=== PATIENT | male | born 1950 | race African-American/Black ===

== ENCOUNTER 2022-12-18 22:27 | Inpatient (IN) | payer MEDICARE, MEDICAID ==
[~2022-12-18] VITALS: Ht 175.3 cm; Wt 81.6 kg
[2022-12-18] MEDS ORDERED: DEXT 10% WATER 250 ML IV SCH (23:00)
[2022-12-19 01:12] LABS: BASOPHILS % 0.5 % (0.0-2.0); EOSINOPHILS % 0.4 % (0.0-5.0); HEMOGLOBIN. 9.9 g/dL (14.0-18.0); MEAN CORPUSCULAR HEMOGLOBIN 29.3 pg (28.0-32.0); MEAN CORPUSCULAR HGB CONC 32.9 g/dL (31.0-37.0); MEAN CORPUSCULAR VOLUME 88.9 fL (80.0-94.0); NEUTROPHILS % 81.1 % (40.0-76.0); PLATELET 423 x1000/uL (130-400); RED BLOOD CELL COUNT 3.37 mill/uL (4.7-6.1); RED CELL DISTRIBUTION WIDTH 13.6 % (11.6-14.6); WHITE BLOOD COUNT 11.4 x1000/uL (4.5-11.0)
[2022-12-19 01:17] LABS: CHLORIDE 106 mEq/L (98-107); INDEX HEMOLYSI 1 (1-3); INDEX ICTERIC 1 (1-4); INDEX LIPEMIC 1 (1-3); POTASSIUM 4.6 mEq/L (3.5-5.1); SODIUM 133 mEq/L (136-145)
[2022-12-19 01:26] LABS: ALANINE AMINOTRANSFERASE 51 IU/L (13-61); ASPARTATE AMINOTRANSFERASE 71 IU/L (15-37); BILIRUBIN TOTAL 0.3 mg/dL (0.1-1.0); CALCIUM 8.3 mg/dL (8.5-10.1); CARBON DIOXIDE 24 mEq/L (21-32); CREATININE 3.1 mg/dL (0.6-1.3); NT PRO B-TYPE NATRIURETIC PEP 1362 pg/mL (5-125); PROTEIN TOTAL 6.5 g/dL (6.0-8.3); UREA NITROGEN BLOOD 40 mg/dL (7-21)
[2022-12-19 01:45] LABS: GLUCOSE 37 mg/dL (70-105)
[2022-12-19] MEDS ORDERED: GLUCAGON,HUMAN RECOMBINANT 1MG/VIAL IM ONE (02:00)
[2022-12-19] MEDS ORDERED: PANTOPRAZOLE SODIUM 40 MG/VIAL IV NR (02:30)
[2022-12-19] MEDS ORDERED: LOPERAMIDE HCL 2MG CAPSULE PO NR (02:30)
[2022-12-19] MEDS ORDERED: ALBUMIN HUMAN 12.5GM/50ML (25%) IV NR (02:30)
[2022-12-19] MEDS ORDERED: PANTOPRAZOLE 80 MG in SODIUM CHLORIDE 0.9% 100 ML IV NR ×2 (02:30→03:00)
[2022-12-19 03:07] LABS: INR 0.9; PROTHROMBIN TIME 9.8 sec (9.6-11.0)
[2022-12-19 03:22] LABS: CLARITY URINE CLEAR (CLEAR); COLOR URINE YELLOW (YELLOW); GLUCOSE URINE NEGATIVE (NEGATIVE); KETONES URINE NEGATIVE (NEGATIVE); LEUKOCYTE ESTERASE URINE NEGATIVE (NEGATIVE); NITRITE URINE NEGATIVE (NEGATIVE); OCCULT BLOOD URINE TRACE (NEGATIVE); PROTEIN URINE 3+ (NEGATIVE); SPECIFIC GRAVITY URINE 1.009 (1.005-1.030)
[2022-12-19 03:25] LABS: BACTERIA URINE NONE SEEN; SQUAMOUS EPITHELIAL CELL URINE NONE SEEN /lpf (RARE/1+); YEAST URINE NONE SEEN
[2022-12-19] MEDS ORDERED: IPRATROPIUM/ALBUTEROL 0.5-3(2.5)MG/3ML NEB HHN PRN (04:30)
[2022-12-19] MEDS ORDERED: ACETAMINOPHEN 325MG TABLET PO PRN ×2 (04:30)
[2022-12-19] MEDS ORDERED: CLONIDINE 0.1MG TABLET PO PRN (04:30)
[2022-12-19] MEDS: BLOOD SUGAR DIAGNOSTIC STRIP TEST SCH ×5 (06:30→21:15)
[2022-12-19 07:20] LABS: BASOPHILS % 0.2 % (0.0-2.0); EOSINOPHILS % 0.5 % (0.0-5.0); HEMATOCRIT. 26.6 % (42.0-52.0); HEMOGLOBIN. 8.8 g/dL (14.0-18.0); LYMPHOCYTES % 11.2 % (20.0-50.0); MEAN CORPUSCULAR HEMOGLOBIN 29.1 pg (28.0-32.0); MEAN CORPUSCULAR HGB CONC 33.2 g/dL (31.0-37.0); MEAN CORPUSCULAR VOLUME 87.8 fL (80.0-94.0); MEAN PLATELET VOLUME 7.2 fl (7.4-10.4); MONOCYTES % 8.7 % (2.0-8.0); NEUTROPHILS % 79.4 % (40.0-76.0); PLATELET 368 x1000/uL (130-400); RED BLOOD CELL COUNT 3.03 mill/uL (4.7-6.1); RED CELL DISTRIBUTION WIDTH 13.3 % (11.6-14.6); WHITE BLOOD COUNT 9.2 x1000/uL (4.5-11.0)
[2022-12-19 07:58] LABS: RBC URINE 0-2 /hpf (0-2); WBC URINE 0-2 /hpf (0-2)
[2022-12-19] MEDS: HYDRALAZINE HCL 50MG TABLET PO SCH ×3 (08:18→17:27)
[2022-12-19 08:57] LABS: INDEX HEMOLYSI 1 (1-3); INDEX ICTERIC 1 (1-4); INDEX LIPEMIC 1 (1-3)
[2022-12-19 08:58] LABS: CHLORIDE 106 mEq/L (98-107); INDEX HEMOLYSI 1 (1-3); INDEX ICTERIC 1 (1-4); INDEX LIPEMIC 1 (1-3); POTASSIUM 4.6 mEq/L (3.5-5.1); SODIUM 134 mEq/L (136-145)
[2022-12-19] MEDS ORDERED: ENOXAPARIN 30MG/0.3ML SYR SUBCUT SCH (09:00)
[2022-12-19] MEDS: BUMETANIDE 1MG/4ML VIAL IV SCH (09:00)
[2022-12-19] MEDS: AMLODIPINE 10MG TABLET PO SCH (09:00)
[2022-12-19 09:12] LABS: ALANINE AMINOTRANSFERASE 45 IU/L (13-61); ALBUMIN 1.9 g/dL (3.4-5.0); ASPARTATE AMINOTRANSFERASE 63 IU/L (15-37); BILIRUBIN TOTAL 0.4 mg/dL (0.1-1.0); CALCIUM 7.7 mg/dL (8.5-10.1); CARBON DIOXIDE 25 mEq/L (21-32); CHOLESTEROL 138 mg/dL (<200); HDL CHOLESTEROL 57 mg/dL (40-59); LDL CHOLESTEROL 72 mg/dL (5-100); PROTEIN TOTAL 5.7 g/dL (6.0-8.3); T4 FREE 1.32 ng/dL (0.76-1.46); TRIGLYCERIDE 88 mg/dL (0-150); UREA NITROGEN BLOOD 40 mg/dL (7-21)
[2022-12-19 09:13] LABS: GAMMA GLUTAMYL TRANSPEPTIDASE 1824 IU/L (11-50); IRON 31 ug/dL (50-175); TOTAL IRON BINDING CAPACITY 240 ug/dL (250-450)
[2022-12-19 09:31] LABS: GLUCOSE 43 mg/dL (70-105)
[2022-12-19 09:43] LABS: INDEX HEMOLYSI 1 (1-3)
[2022-12-19 09:51] LABS: CREATINE KINASE 148 IU/L (39-308)
[2022-12-19 12:30] VITALS: BP 167/80; PULSE 105; RESP 18; TEMP 98
[2022-12-19] MEDS: DEXTROSE 50% WATER 50ML SYRINGE IV PRN ×2 (13:03→17:27)
[2022-12-19 14:01] LABS: HEPATITIS B SURFACE ANTIGEN NEGATIVE
[2022-12-19 14:29] LABS: HEPATITIS B CORE AB IGM NEGATIVE
[2022-12-19 14:31] LABS: HEPATITIS A AB IGM NEGATIVE (NEGATIVE)
[2022-12-19 15:05] LABS: HEPATITIS C VIR.AB > 11.00 INDEXVAL (0.00-0.80)
[2022-12-19 16:00] VITALS: BP 174/80; PULSE 101; RESP 20; TEMP 96.7
[2022-12-19 17:33] LABS: FOLIC ACID (FOLATE) SERUM 8.6 ng/mL (>5.38)
[2022-12-19] MEDS ORDERED: HYDR-4135 MT (17:37)
[2022-12-19] MEDS ORDERED: BUME1TAB8 MT (17:37)
[2022-12-19] MEDS ORDERED: ATOR20TA65 MT (17:37)
[2022-12-19] MEDS ORDERED: METF-414 MT (17:37)
[2022-12-19] MEDS ORDERED: NIFE90TA60 MT (17:37)
[2022-12-19] MEDS ORDERED: GLIP5TAB12 MT (17:37)
[2022-12-19] MEDS: DEXT 5%/0.45% NACL 1000ML 1,000 ML IV SCH (19:00)
[2022-12-19 20:00] VITALS: BP 131/69; PULSE 104; RESP 20; TEMP 98.1
[2022-12-19] MEDS ORDERED: ATORVASTATIN CALCIUM 20MG TABLET PO SCH (21:00)
[2022-12-19] MEDS ORDERED: NON FORMULARY PATIENT HOME MED XX SCH (21:15)
[2022-12-19] MEDS ORDERED: MELATONIN 3MG TABLET PO SCH (21:24)
[2022-12-20] MEDS: HYDRALAZINE HCL 50MG TABLET PO SCH ×4 (05:37→17:36)
[2022-12-20] MEDS: DEXT 5%/0.45% NACL 1000ML 1,000 ML IV SCH ×2 (05:49→15:00)
[2022-12-20 06:00] VITALS: BP 152/71; PULSE 102; RESP 19; TEMP 98.5
[2022-12-20] MEDS: BLOOD SUGAR DIAGNOSTIC STRIP TEST SCH ×3 (07:40→16:39)
[2022-12-20 08:00] VITALS: BP 156/68; PULSE 92; RESP 20; TEMP 97.8
[2022-12-20] MEDS: BUMETANIDE 1MG/4ML VIAL IV SCH (08:51)
[2022-12-20] MEDS: AMLODIPINE 10MG TABLET PO SCH (08:52)
[2022-12-20] MEDS ORDERED: PANTOPRAZOLE SODIUM 40 MG/VIAL IV SCH (09:00)
[2022-12-20 10:00] VITALS: BP 153/74; PULSE 91; RESP 20; TEMP 97.5
[2022-12-20 10:09] LABS: COMPLEMENT C3 144 mg/dL (82-167); COMPLEMENT C4 38 mg/dL (12-38)
[2022-12-20 12:00] VITALS: BP 150/75; PULSE 96; RESP 20; TEMP 97.5
[2022-12-20 13:07] LABS: ANTI-NUCLEAR ANTIBODIES DIRECT Negative (Negative); CA 19-9 < 2 U/mL (0-35)
[2022-12-20 16:00] VITALS: BP 152/71; PULSE 100; RESP 20; TEMP 97.6
[2022-12-20 16:52] VITALS: BP 154/71; PULSE 100; TEMP 97.6; O2SAT 98
[2022-12-20] MEDS ORDERED: ASCORBIC ACID 500 MG TABLET PO SCH (17:00)
[2022-12-20 18:02] LABS: BASOPHILS % 0.4 % (0.0-2.0); EOSINOPHILS % 0.5 % (0.0-5.0); HEMATOCRIT. 25.9 % (42.0-52.0); HEMOGLOBIN. 8.6 g/dL (14.0-18.0); MEAN CORPUSCULAR HEMOGLOBIN 29.6 pg (28.0-32.0); MEAN CORPUSCULAR VOLUME 89.6 fL (80.0-94.0); MEAN PLATELET VOLUME 7.6 fl (7.4-10.4); MONOCYTES % 8.7 % (2.0-8.0); NEUTROPHILS % 75.4 % (40.0-76.0); PLATELET 377 x1000/uL (130-400); RED CELL DISTRIBUTION WIDTH 13.4 % (11.6-14.6); WHITE BLOOD COUNT 7.9 x1000/uL (4.5-11.0)
[2022-12-20] MEDS ORDERED: FERROUS SULFATE 325MG TABLET PO SCH (18:10)
[2022-12-20 18:24] LABS: POTASSIUM 4.8 mEq/L (3.5-5.1)
[2022-12-20 18:28] LABS: CALCIUM 7.8 mg/dL (8.5-10.1); CREATININE 3.3 mg/dL (0.6-1.3)
== END 2022-12-20 18:40 | disposition home or self-care (01) | DRG 638 ==
LOC: ER 22:27 → MICUSO 12-19 03:40 → 7WST 12-19 12:10
PROVIDERS: ADMIT Internal Medicine; ATTEND Internal Medicine
DX: E11.649 Type 2 diabetes mellitus with hypoglycemia without coma (principal); E44.1 Mild protein-calorie malnutrition; K29.70 Gastritis, unspecified, without bleeding; N17.9 Acute kidney failure, unspecified; K52.9 Noninfective gastroenteritis and colitis, unspecified; D64.9 Anemia, unspecified; N18.9 Chronic kidney disease, unspecified; I12.9 Hypertensive chronic kidney disease with stage 1 through stage 4 chronic kidney disease, or unspecified chronic kidney disease; E11.22 Type 2 diabetes mellitus with diabetic chronic kidney disease; B19.20 Unspecified viral hepatitis C without hepatic coma; K80.20 Calculus of gallbladder without cholecystitis without obstruction; Z79.84 Long term (current) use of oral hypoglycemic drugs; Z79.4 Long term (current) use of insulin
CPT/HCPCS: 36415; 71045; 74176; 76700; 76770; 80048; 80053; 80061; 81003; 82105; 82378; 82550; 82570; 82607; 82728; 82746; 82962; 82977; 83036; 83540; 83550; 83880; 84134; 84153; 84156; 84300; 84439; 84443; 84540; 85025; 85044; 85379; 86038; 86160; 86301; 86705; 86709; 86803; 86850; 86900; 87340; 93970; 97162; 99285; C9113; J1610; J1650; J3490; J7050; P9047; G0103

== ENCOUNTER 2023-03-14 15:20 | Emergency (ER) | payer MEDICARE, MEDICAID ==
[~2023-03-14] VITALS: Ht 182.9 cm; Wt 69.0 kg
[~2023-03-14 15:20] MED LIST: ATOR20TA65 MT; BUME1TAB8 MT; HYDR-4135 MT; METF-414 MT; NIFE90TA60 MT
[2023-03-14 15:25] VITALS: O2SAT 98
[2023-03-14] MEDS ORDERED: ACETAMINOPHEN 325MG TABLET PO STA (16:13)
[2023-03-14 18:18] VITALS: BP 124/87; PULSE 83; RESP 19; TEMP 97.9
== END 2023-03-14 18:20 | disposition home or self-care (01) ==
LOC: ER 15:20
DX: M54.50 Low back pain, unspecified (principal); E11.9 Type 2 diabetes mellitus without complications; I10 Essential (primary) hypertension; Z88.8 Allergy status to other drugs, medicaments and biological substances; Z85.9 Personal history of malignant neoplasm, unspecified; V98.8XXA Other specified transport accidents, initial encounter; Y93.89 Activity, other specified; Y92.89 Other specified places as the place of occurrence of the external cause; Y99.8 Other external cause status
CPT/HCPCS: 99283